=== PATIENT | female | born 1955 | race Caucasian/White ===

== ENCOUNTER 2024-11-11 20:41 | Emergency (ER) | payer OTHER ==
[2024-11-11] MEDS ORDERED: NA CHLORIDE 0.9% 500 ML ONE (21:51)
[2024-11-11 21:59] LABS: Hematocrit 44.2 % (36.0-45.0); Hemoglobin 14.3 g/dL (12.0-15.0); MCH 27.9 pg (27.0-35.0); MCHC 32.3 g/dL (32.0-36.0); MCV 86.4 fL (80-100); Nucleated Red Blood Cells % 0.2 % (0-0); RBC Red Blood Cell Count 5.12 M/uL (3.86-4.86); Red Cell Distribution Width 13.7 % (12.1-15.2)
[2024-11-11 22:18] LABS: Anion Gap 7.6 mEq/L (5.0-15.0); Potassium 3.6 mEq/L (3.5-5.1); Troponin High Sensitivity 40.1 pg/mL (<58.9)
[2024-11-11] MEDS ORDERED: ACETAMINOPHEN 500 MG TAB ONE (22:23)
[2024-11-11 22:33] LABS: MPV 8.3 fL (7.6-11.3)
[2024-11-11 22:37] LABS: Absolute Basophils 0.1 K/uL (0-0.5); Absolute Eosinophils 0.5 K/uL (0-0.5); Absolute Lymphocytes (CBC) 2.6 K/uL (0.7-4.9); Absolute Monocytes 0.6 K/uL (0.1-1.3); Absolute Neutrophil 5.5 K/uL (1.8-8.0); Basophils % 0.9 % (0-1.3); Eosinophils % 4.9 % (0-4.4); Lymphocytes % 27.8 % (15.3-44.8); Monocytes % 6.8 % (3.3-12.3); Neutrophils % 59.6 % (41.7-73.7); Platelets 236 thou/uL (152-406)
[2024-11-11 23:48] LABS: Specific Gravity 1.014 (1.005-1.030); Sqamous Epithelial <5 /HPF (None Seen); Urine Bacteria None Seen /HPF (<20); Urine Bilirubin NEGATIVE (Negative); Urine Blood Negative (Negative); Urine Clarity Clear (Clear); Urine Color Light-Yellow (Yellow); Urine Culture Reflex Order NOT NEEDED; Urine Glucose NEGATIVE (Negative); Urine Ketones NEGATIVE (Negative); Urine Micro Reflex YN NO BILL MICROSCOPIC; Urine Nitrite NEGATIVE (Negative); Urine Protein NEGATIVE (Negative); Urine RBC <5 /HPF (None Seen); Urine Urobilinogen Normal (Normal); Urine WBC <5 /HPF (<5); Urine pH 6.5 (5.0-7.0)
--- NOTE | 2024-11-12 00:52 | ER ---
Nurse's Notes [facility] Name: Rere Rhodes Age: 68 yrs Sex: Female : 1955 Arrival Date: 11/11/2024 Time: 20:41 Bed 20 Private MD: Diagnosis: Lightheadedness Presentation: 11/11 21:28 Chief complaint: Patient states: was watching tv and started to get up out of my chair vc1 and got really dizzy, nauseated then couldn't see. Coronavirus screen: Client denies travel out of the [place] in the last 14 days. At this time, the client does not indicate any symptoms associated with coronavirus-19. Ebola Screen: Patient negative for fever greater than or equal to 101.5 degrees Fahrenheit, and additional compatible Ebola Virus Disease symptoms Patient denies exposure to infectious person. Patient denies travel to an Ebola-affected area in the 21 days before illness onset. No symptoms or risks identified at this time. Initial Sepsis Screen: Does the patient meet any 2 criteria? No. Patient's initial sepsis screen is negative. Does the patient have a suspected source of infection? No. Patient's initial sepsis screen is negative. Risk Assessment: Do you want to hurt yourself or someone else? Patient reports no desire to harm self or others. Onset of symptoms was November 11, 2024. 21:28 Method Of Arrival: Wheelchair vc1 21:28 Acuity: BOGDAN 3 vc1 21:30 Note recently recovering from the flu. vc1 Triage Assessment: 21:32 General: Appears in no apparent distress. uncomfortable, obese, well groomed, well vc1 developed, well nourished, Behavior is calm, cooperative, appropriate for age. Pain: Denies pain. EENT: No deficits noted. No signs and/or symptoms were reported regarding the EENT system. Neuro: Level of Consciousness is awake, alert, obeys commands, Oriented to person, place, time, situation, Appropriate for age. Neuro: Reports dizziness. Cardiovascular: Capillary refill < 3 seconds Patient's skin is warm and dry. Respiratory: Airway is patent Respiratory effort is even, unlabored, Respiratory pattern is regular, symmetrical. GI: Reports nausea. : No deficits noted. No signs and/or symptoms were reported regarding the genitourinary system. Derm: Skin is intact, is healthy with good turgor, Skin is dry, Skin is normal, Skin temperature is warm. Musculoskeletal: Circulation, motion, and sensation intact. Range of motion: intact in all extremities. Historical: - Allergies: 21:30 No Known Allergies; vc1 - Home Meds: 21:30 None [Active]; vc1 - PMHx: 21:30 Hypertensive disorder; Situational; vc1 - PSHx: 21:30 Ligation of fallopian tube; vc1 - Immunization history:: Client reports receiving the 2nd dose of the Covid vaccine, Flu vaccine is not up to date. - Infectious Disease History:: Denies. - Social history:: Smoking status: Patient denies any tobacco usage or history of. Screenin:31 [place] [facility] Fall Risk Assessment (Adult) History of falling in the last 3 months, vc1 including since admission No falls in past 3 months (0 pts) Confusion or Disorientation No (0 pts) Intoxicated or Sedated No (0 pts) Impaired Gait No (0 pts) Mobility Assist Device Used No (0 pt) Altered Elimination No (0 pt) Score/Fall Risk Level 0 - 2 = Low Risk Oriented to surroundings, Maintained a safe environment, Educated pt \T\ family on fall prevention, incl call for assistance when getting out of bed. Abuse screen: Denies threats or abuse. Nutritional screening: No deficits noted. Tuberculosis screening: No symptoms or risk factors identified. Assessment: 21:30 Reassessment: Patient and/or family updated on plan of care and expected duration. Pain br2 level reassessed. Patient is alert, oriented x 3, equal unlabored respirations, skin warm/dry/pink. General: Appears in no apparent distress. uncomfortable, Behavior is calm, cooperative. Pain: Denies pain. Neuro: Loza Agitation-Sedation Scale (RASS): 0 - Alert and Calm Level of Consciousness is awake, alert, obeys commands, Oriented to person, place, time, situation, Reports blurred vision dizziness. Cardiovascular: Capillary refill < 3 seconds. Respiratory: Airway is patent Respiratory effort is even, unlabored, Respiratory pattern is regular. 22:30 Reassessment: Patient and/or family updated on plan of care and expected duration. Pain br2 level reassessed. PT C/O OF FRONTAL HEADACHE 01/22 DR DE PAZ NOTIFIED... 11/12 00:05 Reassessment: Patient and/or family updated on plan of care and expected duration. Pain br2 level reassessed. Patient is alert, oriented x 3, equal unlabored respirations, skin warm/dry/pink. Patient states feeling better. Patient states symptoms have improved. Vital Signs: 11/11 21:28 BP 169 / 92; Pulse 67; Resp 14; Temp 97.7; Pulse Ox 98% ; Weight 106.59 kg; Height 5 vc1 ft. 6 in. ; Pain 0/10; 22:30 BP 170 / 64; Pulse 65; Resp 18 S; Pulse Ox 97% on R/A; Pain 3/10; br2 11/12 00:05 BP 106 / 95; Pulse 64; Resp 18; Pulse Ox 97% on R/A; Pain 0/10; br2 01:13 BP 136 / 69; Pulse 63; Resp 18 S; Pulse Ox 98% on R/A; Pain 0/10; br2 11/11 21:28 Body Mass Index 37.93 (106.59 kg, 167.64 cm) vc1 11/11 21:28 Pain Scale: Adult vc1 22:30 Pain Scale: Adult br2 11/12 00:05 Pain Scale: Adult br2 01:13 Pain Scale: Adult br2 ED Course: 11/11 20:42 Patient arrived in ED. [id number] 21:02 Davey De Paz MD is Attending Physician. ec2 21:18 Renu Milligan RN is Primary Nurse. br2 21:29 Triage completed. vc1 21:30 Arm band placed on right wrist. vc1 21:30 Inserted saline lock: 20 gauge in right antecubital area, using aseptic technique. br2 Blood collected. Flushed with 10 mL NS. 21:31 Patient has correct armband on for positive identification. Placed in gown. Bed in low vc1 position. Adult w/ patient. quality assurance monitor body on. Pulse ox on. NIBP on. 21:31 EKG done, by computer tech. af3 22:55 CT Head Brain wo Cont In Process Unspecified. EDMS 11/12 01:11 IV discontinued, intact, bleeding controlled, No redness/swelling at site. Pressure br2 dressing applied. 01:12 Provided Education on: PLAN OF CARE. br2 01:12 No provider procedures requiring assistance completed. br2 Administered Medications: 11/11 21:59 Drug: NS 0.9% IV 500 ml 500 ml IV at 1 bolus once; to be given as a bolus over 30 br2 minutes Volume: 500 ml; Route: IV; Rate: 1 bolus; Site: right antecubital; 23:00 Follow up: Response: No adverse reaction; IV Status: Completed infusion; IV Intake: br2 1000ml 22:35 Drug: Acetaminophen PO 1000 mg PO once Route: PO; br2 23:00 Follow up: Response: No adverse reaction br2 Medication: 21:31 VIS not applicable for this client. vc1 Intake: 23:00 IV: 1000ml; Total: 1000ml. br2 Outcome: 11/12 00:51 Discharge ordered by . ec2 01:11 Discharged to home ambulatory, br2 01:11 Condition: good 01:11 Discharge instructions given to patient, Instructed on discharge instructions, follow up and referral plans. Demonstrated understanding of instructions, follow-up care, 01:13 Patient left the ED. br2 Signatures: Dispatcher [employer] Gilda [id number] Marissa Jj RN RN vc1 Davey De Paz MD MD ec2 Renu Milligan RN RN br2 Luh Hong3 Corrections: (The following items were deleted from the chart) 11/11 23:19 22:30 BP 170 / 64; Pulse 65bpm; Resp 18bpm; Pulse Ox 97%; br2 br2
--- NOTE | 2024-11-12 00:52 | EDPHYS ---
Physician Documentation [facility] Name: Rere Rhodes Age: 68 yrs Sex: Female : 1955 Arrival Date: 11/11/2024 Time: 20:41 Bed 20 Private MD: ED Physician Davey De Paz HPI: 11/11 21:33 This 68 yrs old Female presents to ER via Wheelchair with complaints of ec2 Dizziness. 21:33 Patient arrives today for dizziness which she describes as lightheadedness. Reports ec2 that she was getting out of the chair and subsequently felt lightheaded like she was in a pass out, states that she felt like her vision was going black and subsequently was having issues regaining focus. Patient reports recent infectious symptoms with decreased p.o. intake. Patient reports no active vomiting or diarrhea. No urinary complaints however does baseline have urinary frequency. Reports no cough or cold symptoms for several days. Reports otherwise no significant medical problems, previous history of hypertension however not currently taking medications for this. . Historical: - Allergies: 21:30 No Known Allergies; vc1 - Home Meds: 21:30 None [Active]; vc1 - PMHx: 21:30 Hypertensive disorder; Situational; vc1 - PSHx: 21:30 Ligation of fallopian tube; vc1 - Immunization history:: Client reports receiving the 2nd dose of the Covid vaccine, Flu vaccine is not up to date. - Infectious Disease History:: Denies. - Social history:: Smoking status: Patient denies any tobacco usage or history of. ROS: 21:33 Constitutional: as per hpi ec2 Exam: 21:33 Constitutional: GEN: NAD Head: atraumatic Eyes: EOMI Ears: External ears are ec2 normal. CV: regular rate LUNGS: no respiratory distress ABD: non-distended SKIN: no evidence of rashes MSK: no evidence of trauma. Neuro: Cranial nerves II through XII intact, strength intact all 4 extremities. No pronator drift appreciated. Intact sensation. Vital Signs: 21:28 BP 169 / 92; Pulse 67; Resp 14; Temp 97.7; Pulse Ox 98% ; Weight 106.59 kg; Height 5 vc1 ft. 6 in. ; Pain 0/10; 22:30 BP 170 / 64; Pulse 65; Resp 18 S; Pulse Ox 97% on R/A; Pain 3/10; br2 11/12 00:05 BP 106 / 95; Pulse 64; Resp 18; Pulse Ox 97% on R/A; Pain 0/10; br2 01:13 BP 136 / 69; Pulse 63; Resp 18 S; Pulse Ox 98% on R/A; Pain 0/10; br2 11/11 21:28 Body Mass Index 37.93 (106.59 kg, 167.64 cm) vc1 11/11 21:28 Pain Scale: Adult vc1 22:30 Pain Scale: Adult br2 11/12 00:05 Pain Scale: Adult br2 01:13 Pain Scale: Adult br2 MDM: 11/11 21:13 Medical Screening Exam initiated ec2 21:33 Data reviewed: vital signs, nurses notes. ED course: Patient arrives today for ec2 evaluation of lightheadedness. Examination yields intact neurologic examination and otherwise reassuring hemodynamics. EKG obtained, independently reviewed and interpreted by me, shows normal sinus rhythm, rate of 77, no acute ST segment elevations, intervals are nonactionable.. 21:35 ED course: Will obtain lab work, give the patient crystalloid. Differential diagnosis ec2 considered include processes such as arrhythmia, electrolyte disturbances, anemia, dehydration.. 11/12 00:51 ED course: CT scan of the head shows no acute intracranial normality. On reassessment ec2 patient is well-appearing no acute distress. Discharged home, patient is asymptomatic at this time. Doubt process such as intracranial brain bleed, doubt stroke.. 11/11 21:16 Order name: Basic Metabolic Panel; Complete Time: 22:41 ec2 11/11 21:16 Order name: CBC with Diff ec2 11/11 21:16 Order name: Troponin HS; Complete Time: 22:41 ec2 11/11 21:32 Order name: UAM; Complete Time: 23:48 ec2 11/11 22:40 Order name: CT Head Brain wo Cont ec2 11/11 21:16 Order name: EKG; Complete Time: 21:17 ec2 11/11 21:16 Order name: Cardiac monitoring; Complete Time: 21:31 ec2 11/11 21:16 Order name: EKG - Nurse/Tech; Complete Time: 21:31 ec2 11/11 21:16 Order name: IV Saline Lock; Complete Time: 22:10 ec2 11/11 21:16 Order name: Labs collected and sent; Complete Time: 22:10 ec2 11/11 21:16 Order name: O2 Per Protocol; Complete Time: :35 ec2 11/11 21:16 Order name: O2 Sat Monitoring; Complete Time: 21:35 ec2 Administered Medications: 11/11 21:59 Drug: NS 0.9% IV 500 ml 500 ml IV at 1 bolus once; to be given as a bolus over 30 br2 minutes Volume: 500 ml; Route: IV; Rate: 1 bolus; Site: right antecubital; 23:00 Follow up: Response: No adverse reaction; IV Status: Completed infusion; IV Intake: br2 1000ml 22:35 Drug: Acetaminophen PO 1000 mg PO once Route: PO; br2 23:00 Follow up: Response: No adverse reaction br2 Disposition Summary: 11/12/24 00:51 Discharge Ordered Notes: Location: Home ec2 Condition: Stable ec2 Diagnosis - Lightheadedness ec2 Followup: ec2 - With: Private Physician - When: - Reason: Re-evaluation by your physician Discharge Instructions: - Discharge Summary Sheet ec2 - Dizziness, [id number] ec2 Forms: - Medication Reconciliation Form ec2 - Antibiotic Education ec2 - Prescription Opioid Use ec2 - Patient Portal Instructions ec2 - Leadership Thank You Letter ec2 Signatures: Dispatcher [employer] Marissa Correia, RN RN vc1 Davey De Paz MD MD ec2 Renu Milligan RN RN br2
[2024-11-12 01:17] VITALS: TEMP 97.7
[2024-11-12 01:23] VITALS: BP 136/69; O2SAT 98
--- NOTE | 2024-11-12 01:26 | RAD REPORT ---
EXAM: CT Head Without Intravenous Contrast CLINICAL HISTORY: The patient is 68 years old and is Female; HEADACHE TECHNIQUE: Axial computed tomography images of the head/brain without intravenous contrast. Sagittal and cor onal reformatted images were created and reviewed. This CT exam was performed using one or more of the following dose reduction techniques: automated exposure control, adjustment of the mA and/or kV according to patient size, and/or use of iterative reconstruction technique. COMPARISON: No relevant prior studies available. FINDINGS: BRAIN: Unremarkable. The nam-white matter differentiation is preserved . No hemorrhage. No s ignificant white matter disease. No edema. No extra-axial fluid collections. VENTRICLES: Unremarkable. No ventriculomegaly. BONES/JOINTS: No acute fracture. SOFT TISSUES: Unremarkable. SINUSES: Unremarkable as visualized. No acute sinusitis. MASTOID AIR CELLS: Unremarkable as visualized. No mastoid effusion. ORBITS: Unremarkable as visualized. IMPRESSION: No acute intracranial findings. Electronically signed by: Gregoria Perla MD 11/12/2024 12:37 AM [facility] Due to temporary technical issues with the [email or web address] reporting system, reports are being dante d by the in-house radiologist without review as a courtesy to ensure prompt reporting the interpreting radiologist is fully responsible for the content of the report. Transcribed Date/Time: 11/12/2024 1:26 AM
[2024-11-12 01:43] LABS: Blood Morphology Comment NOT SEEN (NOT SEEN); Platelet Estimate ADEQ; White Blood Cell Scan OK (OK)
--- NOTE | 2024-11-13 11:12 | EKG ---
Test Date: 2024-11-11 Test Time: 21:27:21 Facilities Specialist: AF MEASUREMENT RESULTS: Intervals: Rate: 77 SC: 144 QRSD: 84 QT: 380 QTc: 430 [place]: P: 64 SC: 144 QRS: 12 T: 38 INTERPRETIVE STATEMENTS: Normal sinus rhythm Left ventricular hypertrophy Abnormal ECG No previous ECG available for comparison Electronically Signed On 11-13-24 11:09:34 TWISTING OPERATOR by Jose F Summers
== END 2024-11-12 01:13 | disposition home or self-care (01) ==
LOC: ER 20:41
DX: R42 Dizziness and giddiness (principal); I10 Essential (primary) hypertension
CPT/HCPCS: 93005; 85025; 81001; 80048; 36415; 84484; 70450; 96360; 99285; J7040

== ENCOUNTER 2025-02-08 23:05 | Observation (INO) | payer OTHER ==
[2025-02-08] MEDS ORDERED: ONDANSETRON 4 MG/2 ML VIAL ONE (23:31)
[2025-02-08] MEDS ORDERED: MORPHINE 2 MG/ML SYR ONE ×2 (23:31→23:33)
[2025-02-08] MEDS ORDERED: FAMOTIDINE 20 MG/2 ML VIAL IV ONE (23:32)
[2025-02-08 23:54] LABS: Absolute Basophils 0.1 K/uL (0-0.5); Absolute Eosinophils 0.1 K/uL (0-0.5); Absolute Lymphocytes (CBC) 1.9 K/uL (0.7-4.9); Absolute Monocytes 0.5 K/uL (0.1-1.3); Basophils % 0.9 % (0-1.3); Eosinophils % 1.1 % (0-4.4); Hematocrit 41.2 % (36.0-45.0); Lymphocytes % 17.8 % (15.3-44.8); MCH 28.4 pg (27.0-35.0); MCV 83.6 fL (80-100); MPV 8.2 fL (7.6-11.3); Monocytes % 4.8 % (3.3-12.3); Neutrophils % 75.4 % (41.7-73.7); Nucleated Red Blood Cells % 0.1 % (0-0); Platelets 263 thou/uL (152-406); RBC Red Blood Cell Count 4.93 M/uL (3.86-4.86); Red Cell Distribution Width 13.8 % (12.1-15.2)
[2025-02-08 23:55] LABS: PT Prothrombin Time 12.2 SECONDS (10-13.0); Protime INR 1.07
[2025-02-09 00:04] LABS: Albumin 3.5 g/dL (3.4-5.0); Albumin/Globulin Ratio 0.9 (1.1-1.8); Bilirubin Direct 0.4 mg/dL (0-0.2); Bilirubin Indirect, Calculated 0.6 mg/dL (0.2-0.8); Globulin 3.9 g/dL (2.3-3.5); Magnesium 2.1 mg/dL (1.6-2.4); Protein, Total 7.4 g/dL (6.4-8.2)
[2025-02-09] MEDS ORDERED: MORPHINE 4 MG/ML SYR ONE (02:59)
[2025-02-09] MEDS ORDERED: NA CHLORIDE 0.9% 100 ML ONE (02:59)
[2025-02-09] MEDS ORDERED: PIPERACIL/TAZO 3.375 GM VIAL IV ONE (02:59)
[2025-02-09] MEDS ORDERED: NA CHLORIDE 0.9% 1,000 ML ONE ×2 (02:59→05:15)
--- NOTE | 2025-02-09 03:03 | EDPHYS ---
Physician Documentation [facility] Name: Rere Rhodes Age: 69 yrs Sex: Female : 1955 Arrival Date: 02/08/2025 Time: 23:05 Bed 4 Private MD: KARLEY Physician Stanley Dejesus HPI: 02/08 23:15 This 69 yrs old Female presents to ER via Wheelchair with complaints of Chest Pain. cp 23:15 The patient or guardian reports chest pain that is located primarily in the substernal cp area, epigastric area. Onset: today, about 1730. The pain radiates to back. Associated signs and symptoms: Pertinent positives: abdominal pain, nausea, Pertinent negatives: abdominal pain, cough, diaphoresis, dizziness, headache, lower extremity pain, lower extremity swelling, palpitations, syncope, active vomiting. 23:15 The chest pain is described as constant. Duration: The patient or guardian reports a cp single episode, that is still ongoing, and worsening. Historical: - Allergies: 23:21 Benadryl; lg3 - Home Meds: 23:21 losartan oral [Active]; lg3 - PMHx: 23:21 Hypertensive disorder; Situational; lg3 - PSHx: 23:21 Ligation of fallopian tube; lg3 - Immunization history:: Adult Immunizations up to date. - Infectious Disease History:: Denies. - Social history:: Smoking status: Patient denies any tobacco usage or history of. Patient uses alcohol, occasionally. ROS: 23:20 Constitutional: Negative for body aches, chills, fever, poor PO intake, cp 23:20 Cardiovascular: Positive for chest pain, Negative for edema, palpitations, cp 23:20 Abdomen/GI: Positive for abdominal pain, nausea, of the epigastric area, Negative for vomiting, diarrhea, constipation, 23:20 Back: Positive for radiated pain, Negative for injury or acute deformity, decreased range of motion, 23:20 : Negative for urinary symptoms, 23:20 Neuro: Negative for altered mental status, dizziness, headache, numbness, syncope, near syncope, weakness, 23:20 Eyes: Negative for injury, pain, redness, and discharge, cp 23:20 ENT: Negative for drainage from ear(s), ear pain, sore throat, difficulty swallowing, difficulty handling secretions, 23:20 Respiratory: Negative for cough, shortness of breath, wheezing, cp 23:20 All other systems are negative, Exam: 23:25 ECG was reviewed by the Attending Physician. cp 23:27 Constitutional: The patient appears in no acute distress, alert, awake, cp non-diaphoretic, non-toxic, well developed, well nourished, uncomfortable, 23:27 Head/Face: Normocephalic, atraumatic. cp 23:27 Eyes: Periorbital structures: appear normal, Conjunctiva: normal, no exudate, no injection, Sclera: no appreciated abnormality, Lids and lashes: appear normal, bilaterally, 23:27 ENT: External ear(s): are unremarkable, Nose: is normal, Mouth: Lips: moist, Oral mucosa: moist, Posterior pharynx: Airway: no evidence of obstruction, patent, 23:27 Neck: ROM/movement: is normal, is supple, without pain, no range of motions limitations, no nuchal rigidity, 23:27 Chest/axilla: Inspection: normal, 23:27 Cardiovascular: Rate: normal, Rhythm: regular, Edema: is not appreciated, JVD: is not appreciated, 23:27 Respiratory: the patient does not display signs of respiratory distress, Respirations: normal, no use of accessory muscles, no retractions, labored breathing, is not present, Breath sounds: are clear throughout, no decreased breath sounds, no stridor, no wheezing, 23:27 Abdomen/GI: Inspection: abdomen appears normal, Bowel sounds: active, all quadrants, Palpation: soft, in all quadrants, moderate abdominal tenderness, in the epigastric area, rebound tenderness, is not appreciated, involuntary guarding, is not appreciated, 23:27 Back: pain, that is moderate, of the mid back area, 23:27 Neuro: Orientation: to person, place \T\ time. Mentation: is normal, Motor: moves all fours, strength is normal, Sensation: no obvious gross deficits, Vital Signs: 23:20 BP 163 / 65; Pulse 77; Resp 16 S; Temp 97.7(O); Pulse Ox 100% on R/A; Weight 108.86 kg lg3 (R); Height 5 ft. 6 in. (R); Pain 04/24; 02/09 00:16 BP 138 / 59; Pulse 69; Resp 18 S; Pulse Ox 97% on R/A; ha1 03: BP 118 / 62; Pulse 71; Resp 16 S; Pulse Ox 98% on R/A; lg3 02/08 23:20 Body Mass Index 38.74 (108.86 kg, 167.64 cm) lg3 02/08 23:20 Pain Scale: Adult lg3 MDM: 02/08 23:11 Medical Screening Exam initiated 02/09 00:00 Differential diagnosis: acute pericarditis, cholecystitis, Cholelithiasis pancreatitis, cp peptic ulcer disease, pericarditis, pleurisy, pneumonia, pneumothorax, pulmonary embolus, stable angina, thoracic aortic disection, unstable angina. 03:05 Data reviewed: vital signs, nurses notes, lab test result(s), EKG, radiologic studies, cp plain films, ultrasound, and as a result, I will admit patient. 03:05 Management of patient was discussed with the following: [employer]er: DR Lopez will cp consult for surgery after discussion and patient to be admitted to DR Bennett, hospitalist. Independent interpretation of the following test(s) in the Emergency Department EKG: See my EKG interpretation above. Care significantly affected by the following chronic conditions: Hypertension. Counseling: I had a detailed discussion with the patient and/or guardian regarding the historical points, exam findings, and any diagnostic results supporting the discharge/admit diagnosis, lab results, radiology results, to return to the emergency department if symptoms worsen or persist or if there are any questions or concerns that arise at home. Response to treatment: the patient's symptoms have mildly improved after treatment. 02/08 23:19 Order name: Basic Metabolic Panel; Complete Time: 00:29 cp 02/09 00:30 Interpretation: Normal except: GLUC 110; GFR 65. 02/08 23:19 Order name: CBC with Diff; Complete Time: 00: cp 02/09 00:30 Interpretation: Normal except: RBC 4.93; OLIVER% 75.4. 02/08 23:19 Order name: LFT's; Complete Time: 00:29 cp 02/09 00:30 Interpretation: Normal except: AST 119; ALT 70; BILID 0.4; GLOB 3.9; A/G 0.9. 02/08 23:19 Order name: Magnesium; Complete Time: 00: cp 02/08 23:19 Order name: NT PRO-BNP; Complete Time: 00:29 cp 02/09 02:28 Interpretation: Reviewed. cp 02/08 23:19 Order name: PT-INR; Complete Time: 00:29 cp 02/08 23:19 Order name: Troponin HS; Complete Time: 00:29 cp 02/08 23:19 Order name: Lipase; Complete Time: 00:29 cp 02/09 01:55 Order name: Troponin High Sensitivity; Complete Time: 02:42 cp 02/09 04:22 Order name: Lactate w/ 2H reflex if indic. EDMS 02/09 04:22 Order name: Magnesium EDPR 02/09 04:22 Order name: Phosphorus EDPR 02/09 04:22 Order name: Urinalysis w/ reflexes EDPR 02/09 04:22 Order name: Basic Metabolic Panel EDPR 02/09 04:22 Order name: Basic Metabolic Panel EDPR 02/09 04:22 Order name: CBC with Automated Diff EDPR 02/09 04:22 Order name: CBC with Automated Diff EDPR 02/09 04:22 Order name: Lipid Profile EDPR 02/09 04:22 Order name: Lipid Profile EDPR 02/08 23:19 Order name: XRAY Chest (1 view) 02/09 00:40 Order name: US Abdomen Limited 02/09 04:26 Order name: Cholangiogram EDPR 02/08 23:19 Order name: EKG; Complete Time: 23:20 02/08 23:12 Order name: EKG - Nurse/Tech; Complete Time: 23:19 02/08 23:19 Order name: Cardiac monitoring; Complete Time: 23:23 cp 02/08 23:19 Order name: IV Saline Lock; Complete Time: 23:27 cp 02/08 23:19 Order name: Labs collected and sent; Complete Time: 23:27 cp 02/08 23:19 Order name: O2 Per Protocol; Complete Time: 23:27 cp 02/08 23:19 Order name: O2 Sat Monitoring; Complete Time: 23:27 cp EC/27 23:25 Rate is 80 beats/min. Rhythm is regular. AR interval is normal. QRS interval is normal. cp QT interval is normal. T waves are Inverted in lead aVR. Interpreted by me. Reviewed by me. Administered Medications: 23:29 Not Given (Physician Discretion): morphineor iv 2 mg IVP once over 4 mins cp 23:33 Drug: Ondansetron IVP 4 mg IVP once; over 2 minutes Route: IVP; Site: left antecubital; 1 02/09 00:10 Follow up: Response: No adverse reaction; Marked relief of symptoms [facility] 02/08 23:35 Drug: Famotidine IVP 20 mg IVP once; dilute with 10 mL 0.9% NaCl; give over 2 minutes ha1 Route: IVP; Site: left antecubital; 02/09 00:10 Follow up: Response: No adverse reaction; Marked relief of symptoms 1 02/08 23:42 Drug: morphine IVP or IV 4 mg IVP once over 4 mins Route: IVP; Infused Over: 4 mins; ha1 Site: left antecubital; 02/09 00:10 Follow up: Response: No adverse reaction; Marked relief of symptoms; Pain is decreased; ha1 RASS: Alert and Calm (0) 03:31 Drug: morphine IVP or IV 4 mg IVP once over 4 mins Route: IVP; Infused Over: 4 mins; lg3 Site: left antecubital; 03:31 Drug: Piperacillin-Tazobactam IVPB 3.375 grams IVPB once over 60 mins; (mix in NS 100 lg3 mL) Route: IVPB; Infused Over: 60 mins; Site: left antecubital; 03:31 Drug: NS 0.9% IV 1000 ml IV at 1 bolus Per protocol; to be given as a bolus over 60 lg3 minutes Route: IV; Rate: 1 bolus; Site: left antecubital; Disposition Summary: 02/09/25 03:02 Hospitalization Ordered Notes: Hospitalization Status: Inpatient Admission cp Provider: Prince shireen Bennett Condition: Stable cp Problem: new cp Symptoms: have improved cp Bed/Room Type: Standard cp Location: [facility] ER HOLD(02/09/25 03:27) vc1 Room Assignment: ERHOLD-(02/09/25 03:27) vc1 Diagnosis - Other cholelithiasis without obstruction cp - Chest pain, unspecified cp Forms: - Medication Reconciliation Form cp - SBAR form cp - Leadership Thank You Letter cp Addendum: 02/13/2025 15:26 Co-signature as Attending Physician, Stanley Dejesus MD I agree with the assessment and c ayala plan of care. Signatures: Dispatcher [employer] EDMS Stanley Dejesus MD MD cha Page, Corey, PA PA Deanne Sylvester, RN RN lg3 Marissa Jj, RN RN vc1 Nancy Powers, RN RN ha1 Corrections: (The following items were deleted from the chart) 02/08 23:20 23:20 BASIC METABOLIC PANEL+C.LAB.BRZ ordered. EDMS EDMS 23:20 23:20 CBC+H.LAB.BRZ ordered. EDMS EDMS 23:20 23:20 HEPATIC FUNCTION+C.LAB.BRZ ordered. EDMS EDMS 23:20 23:20 MAGNESIUM+C.LAB.BRZ ordered. EDMS EDMS 23:20 23:20 PROBNP+C.LAB.BRZ ordered. EDMS EDMS 23:20 23:20 PROTIME (+INR)+COAG.LAB.BRZ ordered. EDMS EDMS 23:20 23:20 Troponin High Sensitivity+C.LAB.BRZ ordered. EDMS EDMS 23:20 23:20 LIPASE+C.LAB.BRZ ordered. EDMS EDMS 02/09 00:41 00:41 Abdomen Limited+US.RAD.BRZ ordered. EDMS EDMS 01:55 01:55 Troponin High Sensitivity+C.LAB.BRZ ordered. EDMS EDMS 03: 03:02 Telemetry/MedSurg (Inpatient) cp vc1 03: 03:02 cp vc1
--- NOTE | 2025-02-09 03:03 | ER ---
Nurse's Notes [facility] Name: Rere Rhodes Age: 69 yrs Sex: Female : 1955 Arrival Date: 02/08/2025 Time: 23:05 Bed 4 Private MD: Diagnosis: Other cholelithiasis without obstruction;Chest pain, unspecified Presentation: 02/08 23:20 Chief complaint: Patient states: epigastric pain radiating to outer breast and back lg3 since 5:30pm. constant 6/10 pain. Coronavirus screen: Client denies travel out of the [place] in the last 14 days. At this time, the client does not indicate any symptoms associated with coronavirus-19. Ebola Screen: No symptoms or risks identified at this time. Initial Sepsis Screen: Does the patient meet any 2 criteria? No. Patient's initial sepsis screen is negative. Does the patient have a suspected source of infection? No. Patient's initial sepsis screen is negative. Risk Assessment: Do you want to hurt yourself or someone else? Patient reports no desire to harm self or others. Onset of symptoms was February 08, 2025. 23:20 Method Of Arrival: Wheelchair lg3 23:20 Acuity: BOGDAN 3 lg3 Triage Assessment: 23:21 General: Appears in no apparent distress. uncomfortable, Behavior is calm, cooperative. lg3 Pain: Complains of pain in diaphragm and xiphoid area Pain radiates to back Pain currently is 6 out of 10 on a pain scale. EENT: No deficits noted. No signs and/or symptoms were reported regarding the EENT system. Neuro: No deficits noted. Loza Agitation-Sedation Scale (RASS): 0 - Alert and Calm Level of Consciousness is awake, alert, obeys commands, Oriented to person, place, time, situation. Cardiovascular: Reports chest pain, Heart tones S1 S2 present Capillary refill < 3 seconds Clubbing of nail beds is absent JVD is absent Patient's skin is warm and dry. Rhythm is sinus rhythm. Respiratory: No deficits noted. Airway is patent Respiratory effort is even, unlabored, Respiratory pattern is regular, symmetrical. GI: Reports indigestion. : No signs and/or symptoms were reported regarding the genitourinary system. Derm: No deficits noted. No signs and/or symptoms reported regarding the dermatologic system. Skin is intact, is healthy with good turgor, Skin is dry, Skin is normal, Skin temperature is warm. Musculoskeletal: No deficits noted. Circulation, motion, and sensation intact. Range of motion: intact in all extremities. Historical: - Allergies: 23:21 Benadryl; lg3 - Home Meds: 23:21 losartan oral [Active]; lg3 - PMHx: 23:21 Hypertensive disorder; Situational; lg3 - PSHx: 23:21 Ligation of fallopian tube; lg3 - Immunization history:: Adult Immunizations up to date. - Infectious Disease History:: Denies. - Social history:: Smoking status: Patient denies any tobacco usage or history of. Patient uses alcohol, occasionally. Screenin:09 [facility] ED Fall Risk Assessment (Adult) History of falling in the last 3 months, ha1 including since admission No falls in past 3 months (0 pts) Confusion or Disorientation No (0 pts) Intoxicated or Sedated No (0 pts) Impaired Gait No (0 pts) Mobility Assist Device Used No (0 pt) Altered Elimination No (0 pt) Score/Fall Risk Level 0 - 2 = Low Risk Oriented to surroundings, Maintained a safe environment, Educated pt \T\ family on fall prevention, incl call for assistance when getting out of bed, Hourly rounding (assess needs \T\ fall precautionary measures) done. Abuse screen: Denies threats or abuse. Denies injuries from another. Nutritional screening: No deficits noted. Tuberculosis screening: No symptoms or risk factors identified. Assessment: 23:11 General: Appears uncomfortable, Behavior is calm, cooperative. Pain: Complains of pain ha1 in epigastric area Pain radiates to chest Pain currently is 8 out of 10 on a pain scale. Quality of pain is described as burning, pressure. Neuro: Level of Consciousness is awake, alert, obeys commands, Oriented to person, place, time, situation. Cardiovascular: Heart tones S1 S2 present Capillary refill < 3 seconds Patient's skin is warm and dry. Rhythm is sinus rhythm. Respiratory: Airway is patent Respiratory effort is even, unlabored, Respiratory pattern is regular, symmetrical. GI: Abdomen is round non-distended, obese, Bowel sounds present X 4 quads. Reports epigastric pain. : No signs and/or symptoms were reported regarding the genitourinary system. Derm: Skin is fragile, Skin is pink, warm \T\ dry. Musculoskeletal: Circulation, motion, and sensation intact. Range of motion: intact in all extremities. 23:11 Pain: Pain began gradually. ha1 02/09 00:16 Reassessment: Patient and/or family updated on plan of care and expected duration. Pain ha1 level reassessed. Patient is alert, oriented x 3, equal unlabored respirations, skin warm/dry/pink. Patient states feeling better. Patient states symptoms have improved. 03:27 General: Appears in no apparent distress. comfortable, Behavior is calm, cooperative. lg3 Pain: Complains of pain in epigastric area Pain radiates to back Pain currently is 5 out of 10 on a pain scale. Neuro: No deficits noted. Loza Agitation-Sedation Scale (RASS): 0 - Alert and Calm Level of Consciousness is awake, alert, obeys commands, Oriented to person, place, time, situation. Cardiovascular: No deficits noted. Capillary refill < 3 seconds Clubbing of nail beds is absent JVD is absent Patient's skin is warm and dry. Respiratory: No deficits noted. Airway is patent Respiratory effort is even, unlabored, Respiratory pattern is regular, symmetrical. GI: Abdomen is round non-distended, obese, Bowel sounds present X 4 quads. Reports epigastric pain. : No signs and/or symptoms were reported regarding the genitourinary system. EENT: No deficits noted. No signs and/or symptoms were reported regarding the EENT system. Derm: No deficits noted. No signs and/or symptoms reported regarding the dermatologic system. Skin is intact, is healthy with good turgor, Skin is dry, Skin is normal, Skin temperature is warm. Musculoskeletal: No deficits noted. No signs and/or symptoms reported regarding the musculoskeletal system. Circulation, motion, and sensation intact. Range of motion: intact in all extremities. Vital Signs: 02/08 23:20 BP 163 / 65; Pulse 77; Resp 16 S; Temp 97.7(O); Pulse Ox 100% on R/A; Weight 108.86 kg lg3 (R); Height 5 ft. 6 in. (R); Pain 6/10; 02/09 00:16 BP 138 / 59; Pulse 69; Resp 18 S; Pulse Ox 97% on R/A; ha1 03:27 BP 118 / 62; Pulse 71; Resp 16 S; Pulse Ox 98% on R/A; lg3 02/08 23:20 Body Mass Index 38.74 (108.86 kg, 167.64 cm) 3 02/08 23:20 Pain Scale: Adult 3 ED Course: 02/08 23:09 Patient arrived in ED. lg3 23:09 Patient has correct armband on for positive identification. Bed in low position. Call ha1 light in reach. Side rails up X 1. Client placed on continuous cardiac and pulse oximetry monitoring. NIBP monitoring applied. rendering equipment tender on. 23:11 Stanley Rios PA is PHCP. cp 23:11 Stanley Dejesus MD is Attending Physician. cp 23:21 Triage completed. lg3 23:21 Arm band placed on right wrist. EKG completed in triage. Results shown to MD. lg3 23:27 Basic Metabolic Panel Sent. ha1 23: CBC with Diff Sent. ha1 23:27 LFT's Sent. ha1 23:27 Magnesium Sent. ha1 23:27 NT PRO-BNP Sent. ha1 23:27 PT-INR Sent. ha1 23:27 Troponin HS Sent. ha1 23:28 Inserted saline lock: 22 gauge in left antecubital area, using aseptic technique. Blood ha1 collected. Flushed with 10 mL NS. 23:28 Lipase Sent. ha1 02/09 00:00 XRAY Chest (1 view) In Process Unspecified. EDMS 00:10 Nancy Powers, RN is Primary Nurse. ha1 00:47 Patient maintains SpO2 saturation greater than 95% on room air. ha1 01:33 US Abdomen Limited In Process Unspecified. EDMS 03:01 Prince Bennett MD is Hospitalizing Provider. cp 03:27 No provider procedures requiring assistance completed. Patient admitted, IV remains in lg3 place. Administered Medications: 02/08 23:29 Not Given (Physician Discretion): morphineor iv 2 mg IVP once over 4 mins cp 23:33 Drug: Ondansetron IVP 4 mg IVP once; over 2 minutes Route: IVP; Site: left antecubital; 1 02/09 00:10 Follow up: Response: No adverse reaction; Marked relief of symptoms [facility] 02/08 23:35 Drug: Famotidine IVP 20 mg IVP once; dilute with 10 mL 0.9% NaCl; give over 2 minutes ha1 Route: IVP; Site: left antecubital; 02/09 00:10 Follow up: Response: No adverse reaction; Marked relief of symptoms ha1 02/08 23:42 Drug: morphine IVP or IV 4 mg IVP once over 4 mins Route: IVP; Infused Over: 4 mins; ha1 Site: left antecubital; 02/09 00:10 Follow up: Response: No adverse reaction; Marked relief of symptoms; Pain is decreased; ha1 RASS: Alert and Calm (0) 03:31 Drug: morphine IVP or IV 4 mg IVP once over 4 mins Route: IVP; Infused Over: 4 mins; lg3 Site: left antecubital; 03:31 Drug: Piperacillin-Tazobactam IVPB 3.375 grams IVPB once over 60 mins; (mix in NS 100 lg3 mL) Route: IVPB; Infused Over: 60 mins; Site: left antecubital; 03:31 Drug: NS 0.9% IV 1000 ml IV at 1 bolus Per protocol; to be given as a bolus over 60 lg3 minutes Route: IV; Rate: 1 bolus; Site: left antecubital; Medication: 00:47 VIS not applicable for this client. ha1 Outcome: 03:02 Decision to Hospitalize by Provider. cp 13:35 Patient left the ED. Signatures: Dispatcher [employer] EDMS Stanley Rios PA PA cp Ciara Rowley RN RN Deanne Cabral RN RN 3 Nancy Powers RN RN ha1 Corrections: (The following items were deleted from the chart) 00:17 00:16 BP 138 / 49; Pulse 69bpm; Resp 18bpm; Spontaneous; Pulse Ox 97% RA; ha1 ha1
[2025-02-09] MEDS ORDERED: ONDANSETRON 4 MG/2 ML VIAL IV PRN (04:18)
[2025-02-09] MEDS: PANTOPRAZOLE 40 MG INJ IVP SCH (04:27)
[2025-02-09] MEDS ORDERED: SODIUM CHLORIDE 0.9% 10ML INJ IV PRN (04:27)
--- NOTE | 2025-02-09 04:27 | P.HP ---
Certification for Inpatient Patient admitted to: Observation With expected LOS: <2 Midnights Practitioner: I am a practitioner with admitting privileges, knowledge of patient current condition, hospital course, and medical plan of care. Services: Services provided to patient in accordance with Admission requirements found in Title 42 Section 412.3 of the Code of Federal Regulations Patient History Date of Service: 02/09/25 Reason for admission: Cholelithiasis History of Present Illness: Patient is a 69-year-old female past medical history of obesity hypertension. She presented to the ER for gastric abdominal, nonradiating and associated with nausea. She had episodes of emesis. Feels well. Patient has been found to have cholelithiasis. ER has contacted general surgery. There is a plan for cholecystectomy tomorrow. Surgery recommends obtaining MRCP as well before cholecystectomy. Allergies diphenhydramine [From Benadryl] Allergy (Verified 02/09/25 03:53) Hives/Rash Physical Examination - Physical Exam General: Acute distress, Obese HEENT: Atraumatic, Normocephalic Respiratory: Clear to auscultation bilaterally, Normal air movement Cardiovascular: No edema, Normal pulses, Regular rate/rhythm, Normal S1 S2 Gastrointestinal: Soft and benign, Non-distended, Tenderness Neurological: Normal speech - Studies Laboratory Data (last 24 hrs) 02/08/25 02/08/25 02/08/25 23:25 23:25 23:25 WBC 10.60 Hgb 14.0 Hct 41.2 Plt Count 263 PT 12.2 INR 1.07 Sodium 141 Potassium 4.0 BUN 16 Creatinine 0.95 Glucose 110 H Magnesium 2.1 Total Bilirubin 1.0 AST 119 H ALT 70 H Alkaline Phosphatase 116 Lipase 37 Assessment and Plan - Problems (Diagnosis) (1) Cholelithiasis Current Visit: Yes Status: Acute (2) Hypertension Current Visit: Yes Status: Acute (3) Obesity Current Visit: Yes Status: Acute - Plan Assessment This is a 69-year-old female with a past medical history of hypertension and obesity. She presented with epigastric abdominal pain and was found to have cholelithiasis Cholelithiasis Obesity Hypertension Plan: Admit under evaluation with telemetry Obtain MRCP Pain control and IV fluid infusion Antiemetics General Surgery consulted for cholecystectomy N.p.o. - Advance Directives Does patient have a Living Will: No Does patient have a Durable POA for Healthcare: No
[2025-02-09] MEDS: NA CHLORIDE 0.9% 1,000 ML IV SCH (05:00)
[2025-02-09] MEDS ORDERED: PANTOPRAZOLE 40 MG INJ ONE (05:15)
[2025-02-09 05:35] LABS: Magnesium 1.9 mg/dL (1.6-2.4); Phosphorus 4.3 mg/dL (2.5-4.9)
--- NOTE | 2025-02-09 05:52 | RAD REPORT ---
EXAM DESCRIPTION: Chest Single View CLINICAL HISTORY: CHEST PAIN TECHNIQUE: AP chest COMPARISON: None available for comparison FINDINGS: CHEST: Heart: The cardiomediastinal silhouette is within normal limits. Lungs: No focal consolidation. Mild interstitial prominence, likely chronic. Mediastinum: Unremarkable Pleura: No appreciable effusion. No pneumothorax. Bones: Intact IMPRESSION: Mild interstitial prominence, likely chronic. No radiographic evidence of acute cardiopulmonary disea se. Electronically signed by: Duran Dimas MD 02/09/2025 12:17 AM CDT Due to temporary technical issues with the PACS/[employer] reporting system, reports are being dante d by the in-house radiologist without review as a courtesy to ensure prompt reporting the interpreting radiologist is fully responsible for the content of the report. Transcribed Date/Time: 02/09/2025 5:51 AM
[2025-02-09 06:24] VITALS: BMI 38.7
--- NOTE | 2025-02-09 07:11 | RAD REPORT ---
EXAM DESCRIPTION: US ABDOMEN LIMITED 02/09/2025 1:52 AM CDT CLINICAL HISTORY: 69 years, Female, Elevated liver enzymes, abdominal pain, gallstones. COMPARISON: None. TECHNIQUE: Grayscale and color doppler images of the right upper quadrant are provided for evaluation . FINDINGS: Liver: The liver was not imaged. Gallbladder: There are echogenic structure with posterior shadowing corresponding to cholelithiasis. Gallbladder wall thickness measures 2.1 mm. There is no pericholecystic fluid. Sonographic Adams's sign was not reported by the cone winder. Biliary tree: The common bile duct measures 6.1 mm. No intrahepatic and/or extra hepatic biliary duct dilatation. Pancreas: The pancreas was not imaged. Right kidney: The right kidney was not imaged. Abdominal cavity: There is no ascites. IMPRESSION: Cholelithiasis without secondary signs of acute cholecystitis. Electronically signed by: Peter Maynard MD 02/09/2025 02:08 AM CDT RP Due to temporary technical issues with the PACS/[facility] reporting system, reports are being dante d by the in-house radiologist without review as a courtesy to ensure prompt reporting the interpreting radiologist is fully responsible for the content of the report. Transcribed Date/Time: 02/09/2025 7:11 AM
[2025-02-09] MEDS: PNEUMOCOCCAL VACCINE 0.5 ML IMVAC ONE (08:00)
[2025-02-09] MEDS: LORazepam 2 MG/ML VIAL IV ONE ×2 (09:59→10:52)
[2025-02-09] MEDS ORDERED: LORazepam 2 MG/ML VIAL ONE (10:42)
[2025-02-09] MEDS ORDERED: KETOROLAC 30 MG/ML INJ ONE (10:43)
[2025-02-09] MEDS: KETOROLAC 30 MG/ML INJ IV ONE (10:51)
--- NOTE | 2025-02-09 12:37 | RAD REPORT ---
EXAMINATION: MR CHOLANGIOGRAM CLINICAL INDICATION: Female, 69 years old. Rule out choledocholithiasis TECHNIQUE: Multiplanar, multisequence MR imaging of the abdomen without intravenous contrast, and wit h specific attention to the biliary system. Unless otherwise specified, incidental findings do not require dedicated imaging follow-up. 3D MIP reconstruction performed. COMPARISON: 02/09/2025 abdomen ultrasound FINDINGS: GALLBLADDER: Multiple large gallstones up to 2.5 cm in size. No wall thickening, or pericholecystic f luid. BILE DUCTS: No intrahepatic biliary ductal dilatation. Common bile duct is mildly prominent near uppe r limit of normal for age, measuring up to 7 mm. LIVER: Normal in size, contour, and signal without evidence of fatty infiltration or iron deposition. No focal lesion. PANCREAS: Normal signal. No mass, ductal dilation, or dario-pancreatic fluid. SPLEEN: Normal size. Bilobed subcapsular peripheral T2 hyperintense 1.8 cm lesion, could represent a small cyst or hemangioma. ADRENALS: Normal; no mass. KIDNEYS: Normal size and contour. No hydronephrosis. Left lower pole 2.5 cm T2 hyperintense cyst, see n on the coronal images only. LYMPH NODES: No lymphadenopathy. ADDITIONAL FINDINGS: None. IMPRESSION: No significant internal extrahepatic biliary ductal dilation. No filling defects within the common bi le duct to suggest choledocholithiasis. Multiple large gallbladder stones. Other incidental findings as above.
[2025-02-09] MEDS ORDERED: MIDAZOLAM HCL 2 MG/2 ML INJ ONE (14:13)
[2025-02-09] MEDS ORDERED: ROCURONIUM 50 MG/5 ML VIAL IV ONE (14:13)
[2025-02-09] MEDS ORDERED: FENTANYL CITR 100 MCG/2 ML ONE (14:13)
[2025-02-09] MEDS ORDERED: propofoL 200 MG/20 ML VIAL IV ONE (14:13)
[2025-02-09] MEDS ORDERED: LIDOCAINE 2% MPF 5 ML VIAL ONE (14:13)
[2025-02-09] MEDS: SUGAMMADEX SODIUM 200 MG/2 ML VIAL IV ONE (14:17)
[2025-02-09] MEDS ORDERED: EPHEDRINE SULF 50 MG/ML VIAL ONE (14:38)
[2025-02-09] MEDS: PIPER TAZO 3.375 GM in NA CHLORIDE 0.9% 100 ML IV ONE (14:44)
--- NOTE | 2025-02-09 15:01 | CON ---
Date of Consultation: 02/09/2025 Diagnoses: Acute cholecystitis, symptomatic cholelithiasis. History Of Present Illness: This is a case of a 69-year-old patient, who comes to us with nausea, vo miting, and pain radiating to the back. This is the first time that happened to her. She did not ea t anything for the afternoon. She has some breakfast, Tacos for lunch. The patient came to the ER s bon patient was not better. Seems the pain was not better. At the beginning, she stated that she t hought it was a reflux because she has been treated for that. Then, she come to the parking lot of t he ER and then she thought it was she just did not want to come for something as simple as that, went back home, but then the pain did not get better and made it back to the ER. Allergies: BENADRYL, ASPIRIN, CAFFEINE. Medical History: Hypertension. Surgical History: Fallopian tubal ligation. She does not recall the last colonoscopy she was advise d. Family History: Noncontributory. Review of Systems: As above, 10 points otherwise unremarkable. Physical Examination: Vital Signs: Reviewed. General: The patient is awake, alert. HEENT: Pupils are equal, reactive, anicteric. Neck: Supple. Chest: Clear. Abdomen: Epigastric right upper quadrant pain with Adams sign positive. The rest of the abdomen is soft and depressible. Extremities: Good capillary refill. Breasts: Deferred. Rectal: Deferred. Laboratory Data: Blood work shows WBC count of 10.6, hemoglobin of 14.0. INR is 1.07, potassium 4.0 , glucose 110, total bilirubin of 1, direct bilirubin of 0.4, but AST is 119, and ALT is 70, elevated . Also direct bilirubin elevated at 0.4. Lipase is 37. Ultrasound of the abdomen and pelvis shows cholelithiasis. MRCP shows multiple large gallbladder stones. No filling defects within the common bile duct. The patient was advised to see her medical doctor for and to follow up on her spleen lesi on. Assessment: This is a 69-year-old patient with acute cholecystitis, symptomatic cholelithiasis. Mur phy sign positive. The benefits, alternatives, and risks of laparoscopic possible open cholecystecto my fully explained, which include, but not limited to infection, bleeding, damage to adjacent structu res, anesthesia complication, choledocholithiasis, bile leak, pancreatitis, NH, and even . She also understands if this may not relieve symptoms, she might need one of the surgical intervention. She understood, signed the consent. DOREEN Voice ID: [id number] Report ID: [id number]
[2025-02-09] MEDS ORDERED: dexAMETHasone 4 MG/ML VIAL ONE (15:08)
[2025-02-09] MEDS ORDERED: ONDANSETRON 4 MG/2 ML VIAL ONE (15:08)
--- NOTE | 2025-02-09 15:09 | P.BOP ---
Preoperative diagnosis: acute cholecystitis, symptomatic cholelithiasis Postoperative diagnosis: same Primary procedure: Laparoscopic cholecystectomy Regional Liaison: Jenn Adhikari (Ismael) Estimated blood loss: <10cc Specimen: gb Findings: edematous gallbladder Anesthesia: General Complications: None Transferred to: Recovery Room Condition: Good
[2025-02-09] MEDS ORDERED: HYDROCODONE/APAP 5/325 MG TAB PO PRN (15:13)
[2025-02-09 15:37] VITALS: O2SAT 97
[2025-02-09] MEDS: NA CHLORIDE 0.9% 1,000 ML ONE (16:00)
--- NOTE | 2025-02-10 01:31 | OP ---
Date of Procedure: 02/09/2025 Surgeon: Jevon Lopez MD Surgical Appliance Fitter: Jenn Hinkle Preoperative Diagnoses: Acute cholecystitis, symptomatic cholelithiasis. Postoperative Diagnoses: Acute cholecystitis, symptomatic cholelithiasis. Procedure: Laparoscopic cholecystectomy. Estimated Blood Loss: Less than 10 cc. Specimen: Gallbladder. Findings: Edematous gallbladder consistent with cholecystitis. Anesthesia: General plus local. Indication: This is a lady who comes to us with epigastric right upper quadrant pain, Adams sign po sitive. The benefits, alternatives, and risks of laparoscopic possible open cholecystectomy were ful ly explained, which include, but not limited to, infection, bleeding, damage to adjacent structures, anesthesia complication, choledocholithiasis, bile leak, pancreatitis, MO, and even . She also understands this may not relieve any symptoms. She might need more than one surgical intervention. She understood and signed a consent. Procedure In Detail: The patient was brought to the operating room, placed in supine position, anest hesia was done without complication. Abdominal area was prepped and draped in usual sterile fashion. Marcaine 0.5% was injected for local anesthetic, followed by sharp incision of the skin in the dario umbilical region. Incision was carried down to fascia, which was opened under direct vision. Perito neum was encountered, opened under direct vision. Vicryl #1 placed inside the fascia. Massiel trocar was carefully introduced. Pneumoperitoneum was obtained. At that moment, I proceeded to place 3 mo re trocars, 5 mm each one of them; one in the epigastric area and two in the right upper quadrant und er direct visualization. We noticed the gallbladder to be edematous and inflamed. The grasper was p laced in the fundus of the gallbladder and another grasper in the infundibulum, retracting the gallbl adder in the inferolateral fashion, exposing the triangle of Calot, obtaining critical view. The cys tic duct and cystic artery were clearly isolated and freed circumferentially, and a connection betwee n those and the gallbladder was clearly identified. I proceeded to ligate those by using at least 3 clips proximal and 1 clip distal, ligation in the middle. Same was done with the cystic artery. Sma ll little branch of the cystic artery was also ligated using the same technique. Hepatic arteries an d common bile duct were protected at all times. The gallbladder was removed from the liver using Bov ie cauterizer and removed from the abdominal cavity using Endo Catch through the umbilical incision. The area was inspected once again. No bile leak. No bleeding. At that moment, I proceeded to garcía ve the trocars under direct vision. Deflated pneumoperitoneum. Closed the fascia with #1 Vicryl. I rrigated with subcutaneous tissue, closed that with 3-0 chromic and the skin with rome. Sponge co unt and instrument counts were correct. The patient tolerated procedure well. The patient was sent to recovery in stable condition. BISI/PEPITOL Voice ID: [id number] Report ID: [id number]
[2025-02-10] MEDS: ACETAMINOPHEN 500 MG TAB PO PRN (04:18)
[2025-02-10 07:19] LABS: Absolute Basophils 0.1 K/uL (0-0.5); Absolute Lymphocytes (CBC) 0.7 K/uL (0.7-4.9); Absolute Monocytes 0.4 K/uL (0.1-1.3); Absolute Neutrophil 9.5 K/uL (1.8-8.0); Basophils % 0.8 % (0-1.3); Hematocrit 37.3 % (36.0-45.0); Hemoglobin 12.5 g/dL (12.0-15.0); MCH 28.6 pg (27.0-35.0); MCHC 33.6 g/dL (32.0-36.0); MCV 85.2 fL (80-100); MPV 8.1 fL (7.6-11.3); Monocytes % 3.3 % (3.3-12.3); Neutrophils % 88.9 % (41.7-73.7); Nucleated Red Blood Cells % 0.1 % (0-0); Platelets 251 thou/uL (152-406); RBC Red Blood Cell Count 4.38 M/uL (3.86-4.86)
[2025-02-10 07:34] LABS: Anion Gap 9.5 mEq/L (5.0-15.0); Potassium 4.5 mEq/L (3.5-5.1)
[2025-02-10 08:50] LABS: Blood Morphology Comment NOT SEEN (NOT SEEN); Platelet Estimate ADEQ; White Blood Cell Scan OK (OK)
--- NOTE | 2025-02-10 11:01 | P.PN ---
Subjective Date of Service: 02/10/25 Chief Complaint: symptomatic Cholelithiasis, acute cholecystitis Subjective: Tolerating diet, Ambulating, Improving Review of Systems Respiratory: Unremarkable Cardiovascular: Unremarkable Gastrointestinal: As per HPI Genitourinary: Unremarkable Physical Examination - Vital Signs Temperature: 98.2 F Blood Pressure: 125/61 Pulse: 76 Respirations: 14 Pulse Ox (%): 94 - Physical Exam General: Alert, In no apparent distress, Oriented x3, Cooperative HEENT: Normocephalic, PERRLA, EOMI Neck: Supple Respiratory: Normal air movement Cardiovascular: No edema Gastrointestinal: Soft and benign Musculoskeletal: No clubbing, No swelling, No erythema, No tenderness, No warmth Integumentary: No rashes, No breakdown, No erythema, No warmth, No cyanosis Neurological: Normal speech Assessment And Plan - Plan ok to D/H from surgical standpoint f/u office 1 week May take dressing off tomorrow and shower then cover incisions with bandaid no heavy lifting
--- NOTE | 2025-02-10 11:32 | P.DS ---
Admission Date: 02/09/25 Discharge Date: 02/10/25 Disposition: DC HOME/HOME HEALTH CARE Discharge Condition: GOOD Reason for Admission: symptomatic Cholelithiasis, acute cholecystitis Hospital Course: 1. Cholelithiasis: Status Post laparoscopic cholecystectomy 2. Morbid Obesity: BMI 38.7, consider Weight loss, follow-up with PCP. 3. Hypertension: Continue home medications. 4. Transaminitis: Follow-up with the PCP. 69-year-old with a past medical history of hypertension and obesity. She presented with epigastric abdominal pain and was found to have cholelithiasis. Surgery was consulted, she had laparoscopic cholecystectomy yesterday, surgical team evaluated the patient this morning, they cleared her to discharge, when I see the patient today she is doing well without any acute problems, her pain is reasonably controlled, she is tolerating the diet so far, she is passing gas, otherwise no other acute issues going on so I am planning to discharge her to go home, follow-up with PCP and surgery. Subjective: No chest pain or shortness of breath. No nausea or vomiting. abdominal pain controlled with meds. No obvious bleeding. Looks comfortable in the bed. Objective: General appearance: Alert and comfortable CVS: Normal S1 and S2 Lungs: Clear to auscultation bilaterally Abdomen: Soft, bowel sounds present, mild expected post tenderness Extremities: No lower extremity edema Vital Signs/Physical Exam: Temp Pulse Resp BP Pulse Ox 98.2 F 76 14 125/61 94 02/10/25 11:01 02/10/25 11:01 02/10/25 11:01 02/10/25 11:01 02/10/25 11:01 Laboratory Data at Discharge: WBC 10.70 thou/uL (4.3-10.9) 02/10/25 06:57 Hgb 12.5 g/dL (12.0-15.0) 02/10/25 06:57 Hct 37.3 % (36.0-45.0) 02/10/25 06:57 Plt Count 251 thou/uL (152-406) 02/10/25 06:57 PT 12.2 SECONDS (10-13.0) 02/08/25 23:25 INR 1.07 02/08/25 23:25 Sodium 141 mEq/L (136-145) 02/10/25 06:57 Potassium 4.5 mEq/L (3.5-5.1) 02/10/25 06:57 BUN 11 mg/dL (7-18) 02/10/25 06:57 Creatinine 0.77 mg/dL (0.55-1.02) 02/10/25 06:57 Glucose 123 mg/dL (74-106) H 02/10/25 06:57 Phosphorus 4.3 mg/dL (2.5-4.9) 02/09/25 04:57 Magnesium 1.9 mg/dL (1.6-2.4) 02/09/25 04:57 Total Bilirubin 1.0 mg/dL (0.2-1.0) 02/08/25 23:25 AST 119 U/L (15-37) H 02/08/25 23:25 ALT 70 U/L (13-56) H 02/08/25 23:25 Alkaline Phosphatase 116 U/L (45-117) 02/08/25 23:25 Triglycerides 71 mg/dL (<150) 02/10/25 06:57 Cholesterol 158 mg/dL (<200) 02/10/25 06:57 HDL Cholesterol 47 mg/dL (40-60) 02/10/25 06:57 Cholesterol/HDL Ratio 3.36 02/10/25 06:57 Lipase 37 U/L (13-75) 02/08/25 23:25 Home Medications: Amlodipine [Norvasc*] 1 tab PO DAILY 02/09/25 Losartan Potassium [Cozaar] 1 tab PO DAILY 02/09/25 Hydrocodone 5/APAP 325 [[place] 5/325*] 1 tab PO Q6H PRN #20 tab 02/10/25 New Medications: Hydrocodone 5/APAP 325 [[place] 5/325*] 1 tab PO Q6H PRN #20 tab PRN Reason: Pain Scale 5-7 (Moderate) Physician Discharge Instructions: Keep surgical area dry and clean for 48h then may remove outer dressing and shower. Apply antibiotic ointment and bandaid after. Diet: Low sodium Activity: Ad attila Followup: Jevon Lopez MD [ACTIVE - CAN ADMIT] - 1 Week Terrell Katz MD [Primary Care Provider] - 1 Week (f/u in 1 week with CBC and CMP) Time spent managing pt's care (in minutes): 34
[2025-02-10 12:41] VITALS: BP 126/58; TEMP 98.6
--- NOTE | 2025-02-12 11:30 | EKG ---
Test Date: 2025-02-08 Test Time: 23:18:00 Engineering Agent: RV MEASUREMENT RESULTS: Intervals: Rate: 80 IL: 140 QRSD: 82 QT: 374 QTc: 431 Alexis: P: 62 IL: 140 QRS: 38 T: 59 INTERPRETIVE STATEMENTS: Normal sinus rhythm Normal ECG Compared to ECG 11/11/2024 21:27:21 Left ventricular hypertrophy no longer present Electronically Signed On 02-12-25 11:23:17 CDT by Jose F Summers
== END 2025-02-10 14:09 | disposition home health service (06) ==
LOC: ER 23:05 → ERHOLD 02-09 04:18 → 2ND 02-09 13:31
PROVIDERS: ADMIT Internal Medicine; ATTEND Hospitalist
PROC: 0FT44ZZ Resection of Gallbladder, Percutaneous Endoscopic Approach (ICD-10-PCS; principal; 2025-02-09 14:45)
DX: K80.10 Calculus of gallbladder with chronic cholecystitis without obstruction (principal); I10 Essential (primary) hypertension; E66.9 Obesity, unspecified; R11.0 Nausea; R10.9 Unspecified abdominal pain; Z68.38 Body mass index [BMI] 38.0-38.9, adult; R74.01 Elevation of levels of liver transaminase levels
CPT/HCPCS: 47562; 93005; 85025 ×2; 80048 ×2; 36415 ×2; 83735 ×2; 84100; 85610; 80061; 80076; 83605; 88304; 84484 ×2; 83690; 83880; 71045; 74181; 76705; 94010; 96375; 96374; 99285; J2704; J1100; J2543 ×2; J2003; J2470 ×2; J3010; J2270 ×2; J2405 ×2; G0378 ×6; J7030 ×4; J2250